=== PATIENT | female | born 1995 | race Caucasian/White ===

== ENCOUNTER 2016-07-28 21:26 | Emergency (ER) | payer SELFPAY ==
[2016-07-28 22:38] VITALS: BP 106/74
--- NOTE | 2016-08-07 14:49 | UC ---
Bernadette Ramirez SooYoung, scribed for Esmer Guevara MD on 07/28/16 at 2327 . Abdominal Pain Female HPI - HPI Summary HPI Summary: A 21 y/o F presents to [facility] [place] with c/o acute on chronic, intermittent suprapubic pain onset months ago, and worsening today while at work. Associated sx include vaginal discharge, dark and light urine, pelvic cramps unrelated to menstrual cycle, BLOOM, fatigue, pruritic rash on R forearm, nausea. Denies fever, v/d, neg tarry, bloody stools. Pt has tried an OTC anti-fungal on her arm with no relief. No PCP. Pt is not on BC and is not sexually active. - History of Current Complaint Chief Complaint: UCAbdominalPain Stated Complaint: DISCHARGE,CRAMPING Hx Obtained From: Patient, Family/[employer] - with friend Hx Last Menstrual Period: June Onset/Duration: Lasting Hours - worsening today, Lasting Weeks - onset months ago, Still Present Severity Currently: None Pain Intensity: 0 Pain Scale Used: 0-10 Numeric Location: Suprapubic Associated Signs and Symptoms: Positive: Urinary Symptoms, Vaginal Discharge, Nausea, Other: - pos: pelvic cramps, BLOOM, fatigue, pruritic rash on R forearm. Negative: Blood in Stool, Vomiting, Diarrhea Allergies/Adverse Reactions: Allergies Allergy/AdvReac Type Severity Reaction Status Date / Time No Known Allergies Allergy Verified 07/28/16 22:38 Home Medications: Home Medications Multiple Vitamins W/ Minerals [Multivitamin Adults] 1 tab PO DAILY 07/28/16 [ History Confirmed 07/28/16] PMH/Surg Hx/FS Hx/Imm Hx Previously Healthy: Yes Cardiovascular History Of: Reports: Cardiac Disorders - HX HEART MURMUR - Surgical History Surgical History: None - Family History Known Family History: Positive: Other - mother - cervical CA - Social History Occupation: Student Lives: With Family Alcohol Use: None Substance Use Type: None Smoking Status (MU): Never Smoked Tobacco Review of Systems Constitutional: Fatigue Skin: Rash - R forearm Eyes: Negative ENT: Negative Respiratory: Negative Cardiovascular: Negative Gastrointestinal: Abdominal Pain, Other - pos: nausea Genitourinary: Other - pos: vaginal discharge, urinary color changes, pelvic cramping Motor: Negative Neurovascular: Negative Musculoskeletal: Negative Neurological: Headache All Other Systems Reviewed And Are Negative: Yes - Comments Additional Review of Systems Comments: See HPI. Physical Exam Triage Information Reviewed: Yes Appearance: Thin Vital Signs: Initial Vital Signs Temp 99 F 07/28/16 22:33 Pulse 81 07/28/16 22:33 Resp 16 07/28/16 22:33 BP 106/74 07/28/16 22:33 Pulse Ox 100 07/28/16 22:33 Vital Signs Reviewed: Yes Eye Exam: Normal ENT Exam: Normal Neck exam: Normal Respiratory Exam: Normal Cardiovascular Exam: Normal Abdominal Exam: Normal - minimal tender at examination. normal bow. snds. no cvat. No bruit appreciated. No cvat. Offered and encouraged pelvic examination, but pt declined. Will seek care from pcp ([facility] [place] referral given). Musculoskeletal Exam: Normal Neurological Exam: Normal Psychological Exam: Normal Skin Exam: Normal - except right upper forearm with dermatitic plaque, appears fungal. + excoriation. No fluctuance. - Additional Comments Appearance: Well-Nourished Eye Exam: Normal ENT Exam: Normal Neck exam: Normal, no adenopathy appreciated Respiratory Exam: Chest non-tender, Lungs clear, Normal breath sounds, No respiratory distress, No accessory muscle use Cardiovascular Exam: Normal Cardiovascular: RRR, No Murmur, Pulses Normal - sitting up. heart rate correlates w left radial pulse, Brisk Capillary Refill Abdominal Exam: Normal Abdomen Description: Nontender, No organomegaly, Soft Bowel Sounds: Present Musculoskeletal Exam: Normal Musculoskeletal: Strength Intact Neurological Exam: Normal: nonfocal, grossly intact Psychological Exam: Normal: conversing easily and appropriately Skin Exam: Normal: no visible or reported rash Abd Pain Female Course/Dx - Course Course Of Treatment: Declines pelvic examination. Stongly encourage pcp f/u. [facility] referral given. Reviewed urine dip with pt. Needs to hydrate. Urine cx sent. Rx lotrisone - right forearm. Ms. Mitchell was given the opportunity to ask several insightful questions, to which I answered to the best of my ability. - Differential Dx/Diagnosis Provider Diagnoses: Chronic abd pain. Fungal dermatitis R arm Discharge - Discharge Plan Condition: Stable Disposition: HOME Prescriptions: Clotrimazole/Betamethasone* [Lotrisone Cream*] 1 applic TOPICAL BID #1 tube Patient Education Materials: Pelvic Pain in Women (ED) Referrals: [facility] [place] PHYSICIAN REFERRAL [Outside] No Primary Care Phys,NOPCP [Medical Doctor] - Additional Instructions: Please establish with a primary care physician as soon as possible. This is important. Seek medical attention at the Emergency Department for worsening problems in the meantime. You will be notified if the urine culture indicates need for antibiotic. The documentation as recorded by the Bernadette weaver SooYoung accurately reflects the service I personally performed and the decisions made by me, Esmer Guevara MD.
== END 2016-07-29 00:30 | disposition home or self-care (01) ==
LOC: UCEAST 21:26
DX: R10.30 Lower abdominal pain, unspecified (principal); B36.8 Other specified superficial mycoses; Z32.02 Encounter for pregnancy test, result negative
CPT/HCPCS: 81002; 81025; 87086; 99202; G0463

== ENCOUNTER 2016-09-09 17:15 | Emergency (ER) | payer BC ==
[2016-09-09 17:36] VITALS: BP 111/64
--- NOTE | 2016-09-09 17:58 | UC ---
Throat Pain/Nasal Leoncio HPI - HPI Summary HPI Summary: ST since Sunday, L>R. Denies fever or cough. States "I feel like I'm fighting off an infection" but is unable to describe why or where she might have an infection. Says her low abd pain is not changed from her last visit and expresses interest in getting a PCP. Is not here for belly pain tonight, mainly worried about throat. Had mono 3-4 years ago. - History of Current Complaint Chief Complaint: UCRespiratory Stated Complaint: SORE THROAT Time Seen by Provider: 09/09/16 17:26 Hx Obtained From: Patient Hx Last Menstrual Period: Currently menstruating ?: No Cough: None Associated Signs & Symptoms: Negative: Nasal Discharge - Allergies/Home Medications Allergies/Adverse Reactions: Allergies Allergy/AdvReac Type Severity Reaction Status Date / Time No Known Allergies Allergy Verified 07/28/16 22:38 Home Medications: Home Medications Emergen-C 09/09/16 [History] Nyquil 09/09/16 [History] PMH/Surg Hx/FS Hx/Imm Hx Endocrine History Of: Denies: Diabetes, Thyroid Disease Cardiovascular History Of: Reports: Cardiac Disorders - HX HEART MURMUR Denies: Hypertension Respiratory History Of: Denies: COPD, Asthma GI/ History Of: Denies: Ulcer - Surgical History Surgical History: Yes Surgery Procedure, Year, and Place: Lloyd teeth - Family History Known Family History: Positive: Other - mother - cervical CA - Social History Occupation: Employed Part-time Alcohol Use: Occasionally Substance Use Type: None Smoking Status (MU): Former Smoker When Did the Patient Quit Smoking/Using Tobacco: 3-4 years ago Review of Systems Constitutional: Negative Skin: Negative Eyes: Negative ENT: Sore Throat Respiratory: Negative Cardiovascular: Negative Gastrointestinal: Abdominal Pain - chronic Genitourinary: Negative Motor: Negative Neurovascular: Negative Musculoskeletal: Negative Neurological: Negative Psychological: Negative All Other Systems Reviewed And Are Negative: Yes Physical Exam Triage Information Reviewed: Yes Appearance: Well-Appearing, No Pain Distress, Well-Nourished Vital Signs: Initial Vital Signs Temp 97.5 F 09/09/16 17:25 Pulse 90 09/09/16 17:25 Resp 18 09/09/16 17:25 BP 111/64 09/09/16 17:25 Pulse Ox 100 09/09/16 17:25 Vital Signs Reviewed: Yes Eye Exam: Normal Eyes: Positive: Conjunctiva Clear ENT: Positive: Pharyngeal erythema - L>R, Tonsillar swelling - L, Tonsillar exudate - L Dental Exam: Normal Neck exam: Normal Neck: Positive: Supple, Nontender, No Lymphadenopathy Respiratory Exam: Normal Respiratory: Positive: Chest non-tender, Lungs clear, Normal breath sounds, No respiratory distress, No accessory muscle use Cardiovascular Exam: Normal Cardiovascular: Positive: RRR, No Murmur Musculoskeletal Exam: Normal Neurological Exam: Normal Neurological: Positive: Alert Psychological Exam: Normal Skin Exam: Normal Throat Pain/Nasal Course/Dx - Differential Dx/Diagnosis Provider Diagnoses: tonsillitis Discharge - Discharge Plan Condition: Stable Disposition: HOME Patient Education Materials: Tonsillitis (ED) Referrals: [facility] [place]ERR[facility] [Outside] Additional Instructions: Your mild tonsillitis is probably viral and should resolve on its own. Your rapid strep test is negative here. Please contact the physician referral center to get in contact with a primary care provider.
== END 2016-09-09 18:06 | disposition home or self-care (01) ==
LOC: UCEAST 17:15
DX: J03.90 Acute tonsillitis, unspecified (principal); Z87.891 Personal history of nicotine dependence
CPT/HCPCS: 87651; 99212; G0463